=== PATIENT | female | born 1980 | race African-American/Black ===

== ENCOUNTER 2018-08-13 22:47 | Emergency (ER) | payer OTHER ==
[~2018-08-13] VITALS: Ht 170.2 cm; Wt 70.8 kg
[2018-08-13 22:52] VITALS: BP 123/89; Ht 170.2 cm; Wt 70.8 kg
== END 2018-08-14 01:08 | disposition home or self-care (01) ==
LOC: ED 22:47
DX: S52.572A Other intraarticular fracture of lower end of left radius, initial encounter for closed fracture (principal); S59.802A Other specified injuries of left elbow, initial encounter; Z88.2 Allergy status to sulfonamides; W18.39XA Other fall on same level, initial encounter; Y93.51 Activity, roller skating (inline) and skateboarding; Y92.89 Other specified places as the place of occurrence of the external cause; Y99.8 Other external cause status
CPT/HCPCS: Q0092